=== PATIENT | female | born 1975 | race Asian ===

== ENCOUNTER 2017-03-18 10:48 | Emergency (ER) | payer MEDICAID ==
[~2017-03-18] VITALS: Ht 170.2 cm; Wt 65.3 kg
[2017-03-18 14:24] LABS: BASOPHIL % 0.1 % (0-2); PLATELET COUNT 250 x10^3mcL (130-400)
[2017-03-18 14:26] LABS: RED CELL DISTRIBUTION WIDTH 15.1 % (11.5-14.5)
[2017-03-18 14:29] LABS: CALCIUM 9.1 mg/dL (8.5-10.1); CARBON DIOXIDE 24.7 mmol/L (21-32); CHLORIDE SERUM 103 mmol/L (98-107); CREATININE SERUM 0.7 mg/dL (0.6-1.0); GFR1 > 60 mL/min; GLUCOSE SERUM 100 mg/dL (74-106); POTASSIUM SERUM 3.5 mmol/L (3.5-5.1); SODIUM SERUM 138 mmol/L (136-145)
[2017-03-18 14:35] LABS: ALBUMIN 3.9 g/dL (3.4-5.0); ALKALINE PHOSPHATASE 81 U/L (46-116); ALT/SGPT 24 U/L (14-59); AMYLASE 82 U/L (25-115); AST/SGOT 13 U/L (15-37); BILIRUBIN TOTAL 0.3 mg/dL (0.20-1.00); LIPASE 156 IU/L (73-393); TOTAL PROTEIN, SERUM 7.8 g/dL (6.4-8.2)
[2017-03-18 15:46] VITALS: BP 134/90
== END 2017-03-18 15:44 | disposition home or self-care (01) ==
LOC: ED 10:48
PROVIDERS: Specialist
DX: N83.202 Unspecified ovarian cyst, left side (principal); N83.201 Unspecified ovarian cyst, right side
CPT/HCPCS: 36415; 83880; J1885

== ENCOUNTER 2017-04-28 05:44 | Emergency (ER) | payer MEDICAID | END 2017-04-28 11:33 | disposition home or self-care (01) | LOC: ED 05:44 | DX: N93.8 Other specified abnormal uterine and vaginal bleeding (principal); D64.9 Anemia, unspecified ==

== ENCOUNTER 2020-08-17 23:23 | Emergency (ER) | payer OTHER ==
[~2020-08-17] VITALS: Ht 170.2 cm; Wt 65.3 kg
[2020-08-17 23:30] VITALS: BP 155/110; Ht 170.2 cm; Wt 65.3 kg
== END 2020-08-18 01:24 | disposition left against medical advice (07) ==
LOC: ED 23:23
DX: Z53.21 Procedure and treatment not carried out due to patient leaving prior to being seen by health care provider (principal)